=== PATIENT | male | born 1940 | race Caucasian/White ===

== ENCOUNTER 2021-05-26 06:25 | Observation (INO) ==
--- NOTE | 2021-04-28 12:53 | PAT Medication Instructions ---
Medication Instructions Date of Service April 28, 2021 Home Medications Medication Instructions Recorded ondansetron HCl 4 mg tablet 4 mg PO Q6H PRN #30 tab 04/14/21 oxycodone 5 mg tablet 5 mg PO Q4H PRN #18 tab 04/21/21 ondansetron HCl 4 mg tablet 4 mg PO Q6H PRN oxycodone 5 mg tablet 5 mg PO Q4H PRN cholecalciferol (vitamin D3) 25 mcg (1,000 unit) tablet (Vitamin D3) 25 mcg PO QAM cyanocobalamin (vitamin B-12) 1,000 mcg tablet (Vitamin B-12) 1,000 mcg PO QAM finasteride 5 mg tablet 5 mg PO QAM furosemide 20 mg tablet (Lasix) 20 mg PO QAM glucosamine-chondroitin 250 mg-200 mg tablet (Osteo Bi-Flex) 1 tab PO QAM levothyroxine 75 mcg capsule 75 mcg PO QAM omeprazole 20 mg capsule,delayed release 20 mg PO QAM pravastatin 40 mg tablet 40 mg PO HS tamsulosin 0.4 mg capsule 0.4 mg PO HS zinc sulfate 220 mg capsule 220 mg PO QAM STOP taking 2 weeks before surgery glucosamine-chondroitin 250 mg-200 mg tablet (Osteo Bi-Flex) 1 tab PO QAM DO NOT take the morning of surgery cholecalciferol (vitamin D3) 25 mcg (1,000 unit) tablet (Vitamin D3) 25 mcg PO QAM cyanocobalamin (vitamin B-12) 1,000 mcg tablet (Vitamin B-12) 1,000 mcg PO QAM furosemide 20 mg tablet (Lasix) 20 mg PO QAM zinc sulfate 220 mg capsule 220 mg PO QAM Take morning of surgery With a small sip of water, OTHERWISE NOTHING TO EAT OR DRINK AFTER MIDNIGHT: ondansetron HCl 4 mg tablet 4 mg PO Q6H PRN (if needed) oxycodone 5 mg tablet 5 mg PO Q4H PRN (okay to take up to 4 hours prior to surgery if needed) finasteride 5 mg tablet 5 mg PO QAM levothyroxine 75 mcg capsule 75 mcg PO QAM omeprazole 20 mg capsule,delayed release 20 mg PO QAM Take evening before surgery ondansetron HCl 4 mg tablet 4 mg PO Q6H PRN (if needed) oxycodone 5 mg tablet 5 mg PO Q4H PRN (if needed) pravastatin 40 mg tablet 40 mg PO HS tamsulosin 0.4 mg capsule 0.4 mg PO HS Other Notes If you have any questions please call us at [phone] or [phone] or [phone] or [phone]
--- NOTE | 2021-05-01 10:42 | Anesthesiology Consultation ---
Date of Service May 01, 2021 Assessment & Plan (1) Encounter for pre-operative examination: Chart Review Chart Review: Acceptable Risk for Surgery (pending pulmonary response and preop Covid testing results ) and Patient seen in Pre Admission Testing -Will send note to pulmonology re: abnormal CXR - will await response Per [facility] appt on 05/01/21, patient denies any recent travel or large group activities. No known Covid positive contacts or Covid related symptoms. No known Covid infection in the past 90 days. Pt is vaccinated for Covid. Preop Covid testing scheduled 05/22/21 = will await results. Educated on importance of self quarantining, social distancing and wearing mask in public for the patient one week prior to surgery and after Covid testing done Teaching & Discussion Pre-Anesthesia Teaching/Discussion Notes: Instructed NPO after midnight before surgery,except medications with 15 cc of water. Medication instructions provid ed according to the PAT guidelines. History Surgery Operation Date: 05/26/21 07:00 Proposed Procedures p Right Total Knee Arthroplasty - Aric Parish DO Height/Weight Height: 6 ft 1 in Weight: 86.4 kg Allergies Allergy/AdvReac Type Severity Reaction Status Date / Time No Known Allergies Allergy Verified 04/09/21 13:16 Medications Home Medications Medication Instructions Recorded Confirmed Last Taken ondansetron HCl 4 mg tablet 4 mg PO Q6H PRN #30 tab 04/14/21 04/28/21 Unknown oxycodone 5 mg tablet 5 mg PO Q4H PRN #18 tab 04/21/21 04/28/21 Unknown cholecalciferol (vitamin D3) 25 25 mcg PO QAM 04/28/21 04/28/21 Unknown mcg (1,000 unit) tablet (Vitamin D3) cyanocobalamin (vitamin B-12) 1,000 mcg PO QAM 04/28/21 04/28/21 Unknown 1,000 mcg tablet (Vitamin B-12) finasteride 5 mg tablet 5 mg PO QAM 04/28/21 04/28/21 Unknown furosemide 20 mg tablet (Lasix) 20 mg PO QAM 04/28/21 04/28/21 Unknown glucosamine-chondroitin 250 mg-200 1 tab PO QAM 04/28/21 04/28/21 Unknown mg tablet (Osteo Bi-Flex) levothyroxine 75 mcg capsule 75 mcg PO QAM 04/28/21 04/28/21 Unknown omeprazole 20 mg capsule,delayed 20 mg PO QAM 04/28/21 04/28/21 Unknown release pravastatin 40 mg tablet 40 mg PO HS 04/28/21 04/28/21 Unknown tamsulosin 0.4 mg capsule 0.4 mg PO HS 04/28/21 04/28/21 Unknown zinc sulfate 220 mg capsule 220 mg PO QAM 04/28/21 04/28/21 Unknown Past Medical History Medical History (Updated 05/01/21 @ 11:43 by Jany Macedo PA-C) BPH (benign prostatic hyperplasia) CKD (chronic kidney disease) stage 3, GFR 30-59 ml/min Per record GERD (gastroesophageal reflux disease) Well controlled and stable History of COVID-19 07/2020 was hospitalized at [facility] for 9 days. Required oxygen- no longer requires. Has been seeing [facility] due to Covid infection and residual dyspnea- currently pt states Covid symptoms have resolved Last seen by pulm 11/13/20- pt stable at that time Hyperlipidemia Hypothyroidism Osteoarthritis Prediabetes Per record Sleep apnea cpap Exercise / Class Metabolic Activity III < 4 Walking/Shop/Light housework (one flight of stairs - no chest pain, but has mild SOB ) Past Surgical History Surgical History (Updated 05/01/21 @ 11:49 by Jany Macedo PA-C) History of bronchoscopy History of carpal tunnel surgery of right wrist Hx of appendectomy Hx of cardiac cath 03/2020- no significant CAD Hx of tonsillectomy Past Anesthesia History No Hx of Anesthesia Complications and No Family Hx of Anesthesia Complications History of PONV No Hx of PONV and No Hx of Motion Sickness Social History Smoking Status: Never smoker Do You Dip or Chew Tobacco: No Hx Alcohol Use: No Hx Substance Use: No substance use type: does not use Review of Systems Patient denies chest pain, shortness of breath, dyspnea on exertion, cough, wheezing, palpitations. No hx of seizures, stroke, [place]. No hx of blood clots or blood transfusions Physical Exam Vital Signs VITALS BP 122/72 P 60 TEMP 97.9 SP02 96% RESP 16 Constitutional no acute distress ENMT Mouth: no TMJ clicking Thyromental Distance: > or= 3.5 Finger Breadths (3.5) Mallampati Class: II Mouth / Teeth: 1. Capped Neck + limited neck extension (mild ) Missing molars Respiratory normal respiratory effort; no respiratory distress Auscultation: lungs clear to auscultation bilaterally; no wheezes Cardiovascular Rate/Rhythm: regular rate and regular rhythm Heart Sounds: no murmur Vessels: no carotid bruit Musculoskeletal Spine: no pain with cervical ROM Extremities: extremities normal to inspection Psychiatric Orientation: alert Lab Results Anesthesia Preop Results Results Anesthesia Widget: WBC 6.08 K/uL (4.8-10.8) 05/01/21 Hgb 14.7 g/dL (14.0-18.0) 05/01/21 Hct 44.6 % (42-52) 05/01/21 Plt 169 K/uL (130-400) 05/01/21 Na 141 mmol/L (136-145) 05/01/21 K 3.7 mmol/L (3.5-5.1) 05/01/21 Cl 108 mmol/L (98-107) H 05/01/21 CO2 26 mmol/L (21-32) 05/01/21 BUN 20 mg/dl (7-18) H 05/01/21 Creat 1.07 mg/dl (0.6-1.4) 05/01/21 Glucose Level 105 mg/dl (70-99) H 05/01/21 PT 10.2 Seconds (9.0-12.0) 05/01/21 PTT 28.2 Seconds (21.0-31.0) 05/01/21 INR 1.0 (0.9-1.1) 05/01/21 Blood Type O Positive 05/01/21 Antibody Screen NEGATIVE 05/01/21 Testing Electrocardiogram Date: 07/17/20 Findings: + SB @ (51bpm) Otherwise normal EKG per cardio. Chest X-Ray Date: 05/01/21 FINDINGS: Cardiac silhouette is normal in size. Moderate right hemidiaphragmatic elevation. Gaseous distended loops of bowel are noted beneath the right he midiaphragm. Bilateral reticular nodular opacities. No pneumothorax, pleural effusion, lobar airspace consolidation or overt pulmonary edema. Degenerative changes of the shoulders and spine. IMPRESSION: 1. Bilateral reticular nodular opacities are suggestive of a nonspecific infectious or inflammatory pneumonitis, possibly chronic. Correlate with prior imaging. 2. Moderate right hemidiaphragmatic elevation. Stress Test Date: 10/13/19 Type: exercise (Echo) Resting EF: 50-54% Resting LV Function: normal Resting RWMA: + none Valvular Disease: no significant valvular disease Probable negative exercise stress echo for ischemia at MPHR 97%. Borderline positive exercise stress EKG for ischemia at MPHR 97%. 1.[address] depression in the inferior leads at peak stress. EKG normalizes 1 minute into recovery. Poor functional status achieving 3 minutes on standard Velasquez protocol. Left atrium mildly enlarged. Right atrium moderately enlarged. Grade 1 diastolic dysfunction. Cardiac Catheterization Date: 04/02/20 LM = no evidence of disease LAD = 30% lesion in mid LAD Circumflex = no evidence of disease. RCA = minimal luminal irregularities. Conclusions: Coronary angiography with mild nonobstructive CAD. Essentially normal left-sided and right-sided pressures.Patient's dyspnea is likely noncardiac in nature. Recommendations: Recommend medical management. Other Testing Holter monitor 07/10/2020 = good quality. Dominant rhythm NSR with average heart rate 70 bpm. Rare PACs. Occasional PVCs. No symptoms reported.
[~2021-05-26 06:25] MED LIST: ACETAMINOPHEN 500 MG TAB PO SCH; FAMOTIDINE 20 MG TAB PO SCH; GABAPENTIN 300 MG CAP PO SCH; LR 500ML BOLUS, THEN 15ML/HR IV SCH; LR 60ML/HR IV SCH; ROPIVACAINE 0.5% HCL/PF 150 MG, BUPIVACAINE 0.75% MPF 20 ML, EPINEPHrine 30MG/30ML (OR ... INSTIL SCH; TRANEXAMIC ACID 1,000 MG **IV Intra-op IV SCH; TRANEXAMIC ACID 1,000 MG **IV Pre-op IV SCH; ceFAZolin 2000MG 2,000 MG/15 ML SYR IV SCH; dexAMETHasone 4 MG TAB PO SCH
--- NOTE | 2021-05-26 06:28 | History & Physical Report ---
Date of Service May 26, 2021 Assessment & Plan (1) Osteoarthritis of right knee: We will proceed with a right total knee arthroplasty. Postoperatively he will be started on aspirin for DVT prophylaxis and kept overnight in the hospital for postoperative medical management. He is currently wheelchair-bound and proceeding with a knee replacement will significantly improve his overall morbidity and functional status. He plans to have the hospital set up home health upon discharge. History of Present Illness Chief Complaint: Osteoarthritis of the right knee. Primary Care Provider: NO PCP Gualberto is a pleasant 80-year-old male who is been doing with chronic worsening right knee pain. Is been going on for years but it has been much worse over the past few months. He is downgraded to crutches and mostly a wheelchair because of his right knee pain. He has an MRI of his knee which shows significant distal femoral edema and insufficiency fractures of the femur. After failing extensive conservative treatment, he elected proceed with a right total knee arthroplasty.. Allergies Allergy/AdvReac Type Severity Reaction Status Date / Time No Known Allergies Allergy Verified 04/09/21 13:16 Home Medications Medication Instructions Recorded Confirmed Type ondansetron HCl 4 mg tablet 4 mg PO Q6H PRN #30 tab 04/14/21 04/28/21 Rx oxycodone 5 mg tablet 5 mg PO Q4H PRN #18 tab 04/21/21 04/28/21 Rx cholecalciferol (vitamin D3) 25 25 mcg PO QAM 04/28/21 04/28/21 History mcg (1,000 unit) tablet (Vitamin D3) cyanocobalamin (vitamin B-12) 1,000 mcg PO QAM 04/28/21 04/28/21 History 1,000 mcg tablet (Vitamin B-12) finasteride 5 mg tablet 5 mg PO QAM 04/28/21 04/28/21 History furosemide 20 mg tablet (Lasix) 20 mg PO QAM 04/28/21 04/28/21 History glucosamine-chondroitin 250 mg-200 1 tab PO QAM 04/28/21 04/28/21 History mg tablet (Osteo Bi-Flex) levothyroxine 75 mcg capsule 75 mcg PO QAM 04/28/21 04/28/21 History omeprazole 20 mg capsule,delayed 20 mg PO QAM 04/28/21 04/28/21 History release pravastatin 40 mg tablet 40 mg PO HS 04/28/21 04/28/21 History tamsulosin 0.4 mg capsule 0.4 mg PO HS 04/28/21 04/28/21 History zinc sulfate 220 mg capsule 220 mg PO QAM 04/28/21 04/28/21 History Past Med/Surg History Medical History BPH (benign prostatic hyperplasia) CKD (chronic kidney disease) stage 3, GFR 30-59 ml/min Per record GERD (gastroesophageal reflux disease) Well controlled and stable History of COVID-19 07/2020 was hospitalized at [facility] for 9 days. Required oxygen- no longer requires. Has been seeing [facility] due to Covid infection and residual dyspnea- currently pt states Covid symptoms have resolved Last seen by pulm 11/13/20- pt stable at that time Hyperlipidemia Hypothyroidism Osteoarthritis Prediabetes Per record Pulmonary hypertension Following with pulm- on diuretic and low Na diet Sleep apnea cpap Surgical History History of bronchoscopy History of carpal tunnel surgery of right wrist Hx of appendectomy Hx of cardiac cath 03/2020- no significant CAD Hx of tonsillectomy Social History Smoking Status: Never smoker Second Hand Exposure: No; Do You Dip or Chew Tobacco: No; Tobacco Cessation Education Requested by Patient: No Hx Alcohol Use: No Hx Substance Use: No Preferred Language: Botswanan Communication Ability: Effective Manager Work Required: No Beliefs That Will Affect Care: None Current Living Situation: Spouse Other Information That Helps Us Care for You: No Feels Safe at Home: Yes Safety Concerns: Feels Safe At This Time Assistive Devices: Crutches Review of Systems All systems reviewed & are unremarkable except as noted in HPI & below. Physical Exam On physical examination of his right knee, he only has range of motion from 30 to 90 degrees. He is a large effusion. He has significant pain over the distal femoral condyles. He presents to my office in a wheelchair because of the pain.. Constitutional WD/WN, vitals as above Eyes PERRL, conjunctivae normal, anicteric sclerae ENMT external ear and nose normal, oropharynx normal Neck trachea midline, no thyromegaly Respiratory normal respiratory effort Cardiovascular RRR, no murmur, no edema Gastrointestinal (Abdomen) normal bowel sounds, soft, nontender, no hepatosplenomegaly Psychiatric A+Ox3, euthymic affect Results & Data Results & Data Laboratory Results . Diagnostic Findings X-rays of the right leg do show advanced osteoarthritis with joint space narrowing, osteophyte formation, and [id number] articulation MRI the right knee shows a large areas of edema in the distal femoral condyle. There insufficiency fractures of the femur.. PG Care Time/CCT Total # of Minutes Spent Total Time Spent with Patient: Total time spent is greater than 50% in coordination of care (as documented) at patient's floor/unit and/or counseling patient: Coding Level of Care Code None Diagnoses Osteoarthritis of right knee M17.11
[2021-05-26] MEDS ORDERED: BUPIVACAINE 0.5 % 5 MG/1 ML PF 10ML VIAL ONE (06:32)
[2021-05-26] MEDS ORDERED: ROPIVACAINE 0.5% 5 MG/ML 30 ML VIAL ONE (06:32)
[2021-05-26] MEDS ORDERED: MIDAZOLAM HCL 1 MG/ML 2ML VIAL ONE (07:34)
[2021-05-26] MEDS ORDERED: PROPOFOL IV EMULSION 10 MG/ML 20 ML VIAL IV ONE ×3 (07:35→10:22)
[2021-05-26] MEDS ORDERED: ePHEDrine sulfate 50 MG/ML AMP IV PRN (08:31)
[2021-05-26] MEDS ORDERED: ATROPINE SULFATE 0.1 MG/ML 10ML SYR IV PRN (08:31)
[2021-05-26] MEDS ORDERED: fentaNYL citrate 100 MCG/2 ML VIAL IV PRN (08:31)
[2021-05-26] MEDS ORDERED: ONDANSETRON INJ 2 MG/ML 2 ML VIAL IV PRN ×2 (08:31→13:40)
--- NOTE | 2021-05-26 11:35 | Operative Report ---
PG Post Operative Report Pre & Post Diagnosis Operation Date: 05/26/21 08:45 Pre-Op Diagnosis: Right Knee Degenerative Joint Disease Post-Op Diagnosis: Right Knee Degenerative Joint Disease I identified the patient and participated in the time-out.: Yes Procedure Operation Date: 05/26/21 08:45 Actual Procedures p Right Total Knee Arthroplasty(Right) - Aric Parish DO Surgeon Aric Parish DO Propeller Tester Aric Núñez PAC Estimated Blood Loss 50 Findings Consistent with Post-Op Diagnosis Specimens Right femoral and tibial bone Complications none Disposition Disposition: Recovery Room Indications Weston is a pleasant 80-year-old male who is been dealing with chronic worsening right knee pain. Is been much worse over the past 2 months. Is been downgraded to a wheelchair. MRI showed insufficiency fractures of his right knee. After failing conservative treatment, he elected proceed with a right total knee arthroplasty. Description of Procedure Implants used: I used a Angela Persona total knee arthroplasty system with a size 10 femur, G tibia with a 30 mm stem, 32 patella, and a size 12 medial congruent polyethylene bearing. All components were cemented in place with Biomet cement. Weston arrived [facility] for the above procedure. He was seen in the preoperative holding area and the operative extremity was identified and signed. He was given a preoperative antibiotic, TXA, a spinal anesthetic and an adductor nerve block. He was taken back to the operating room and laid on the table in supine position. He was given basic sedation. The operative knee was then prepped and draped in sterile fashion. A timeout was done, and the patient and the operative extremity was properly identified. A midline incision was made directly over the patella. Dissection was taken down to the extensor mechanism. A subvastus arthrotomy was used. The medial retinaculum was released and the fat pad was mostly excised. The knee was flexed and the ACL, PCL, and meniscus were removed. A drill was sent down the center of the femoral canal followed by an intramedullary eric. Off that eric a distal femoral cutting block was placed. 9 mm was resected off the distal femur at 5 of valgus. A posterior referencing AP sizing guide was then placed on the distal femur. The femur measured to be a size 10. 2 drill holes were placed in 3 of external rotation. A 4-in-1 cutting block was then impacted into place. Anterior, posterior, and chamfer cuts were then made. The proximal tibia was then exposed. An external tibial alignment guide was placed. A tibial cut guide was then anchored in place and the proximal tibia was then resected. The posterior aspect of the knee was then opened up and any additional meniscus fragments and osteophytes were removed. The tibia measured to be a size G. The tibial plate was then placed in the appropriate rotation and the tibia was drilled and punched. Trial components were then placed. I used a size 12 medial congruent polyethylene insert. The knee was brought through a full range of motion and felt to be stable. The peg holes for the femoral component were then drilled. The patella was then everted and 9 mm was resected off the posterior aspect of the patella. The patella measured to be a size 30 total. 3 peg holes were then drilled. A trial patella was placed. The knee was once again brought through a full range of motion and felt to be stable. Trial components were then removed. The surrounding soft tissues were injected with 100 cc of an orthopedic pain control cocktail. All components were then cemented into place with Biomet cement. The final polyethylene insert was then snapped into place. Once cement was dry the tourniquet was deflated. Hemostasis was obtained. A dilute betadyne lavage was then done for 3 minutes. The joint was then irrigated with normal saline solution. The subvastus arthrotomy was then closed with #1 Vicryl suture. The skin was closed with 2-0 Vicryl, 3-0V lock suture, and amish. A soft compressive dressing was placed. He was then transferred to a hospital bed and taken to the postanesthesia care unit in stable condition. He tolerated the procedure well. Aric Núñez PA-C, was present for the entire procedure. He was critical for patient positioning, prepping, draping, retraction exposure, wound closure and application of sterile dressing. I attest to the content of the Intraoperative Record and any orders documented therein. Any exceptions are noted below.
--- NOTE | 2021-05-26 12:42 | XRay Report ---
XR knee RT 1 or 2V routine INDICATION: Status post total knee arthroplasty.. TECHNIQUE: 2 views of the right knee were obtained. Comparison: None available at the time of this dictation. FINDINGS: Patient is status post total knee arthroplasty. No evidence of hardware fracture or perihardware luce ncy. There is soft tissue swelling, effusion, and subcutaneous emphysema which is expected postproced urally. IMPRESSION: Expected postsurgical appearance in this patient status post right total knee arthroplasty. ACT 112: Negative or not required by law. Electronically signed by: Demond Gonzalez M.D. 05/26/2021 12:41 PM
--- NOTE | 2021-05-26 12:47 | Anesthesiology Progress Note ---
Date of Service May 26, 2021 Anesthesia Post Procedure Vital Signs Vital Signs: Temp Pulse Pulse Resp BP Pulse Ox 05/26/21 12:40 82 20 112/73 94 05/26/21 12:30 63 12 125/78 94 05/26/21 12:20 78 13 117/77 95 05/26/21 12:10 79 20 120/73 95 05/26/21 12:00 97.0 F L 82 15 138/79 95 05/26/21 06:58 98.4 F 68 18 122/78 96 Transfer of Care Handoff Completed per policy Notes Mental Status: alert / awake / arousable and participated in evaluation Patient Amnestic to Procedure: Yes Nausea / Vomiting: adequately controlled Pain: adequately controlled Airway Patency, RR, SpO2: stable & adequate BP & HR: stable & adequate Hydration State: stable & adequate Neuraxial Anesthesia: was administered and sensory block is resolving Anesthetic Complications: no major complications apparent and Pt Satisfied with anesthetic care
[2021-05-26] MEDS ORDERED: oxyCODONE HCL IR 5 MG TAB (IMMEDIATE RELEASE) PO PRN (13:40)
[2021-05-26] MEDS ORDERED: HYDROmorphone INJ 0.5 MG/0.5 ML SYR IV PRN (13:40)
[2021-05-26] MEDS ORDERED: METOCLOPRAMIDE HCL INJ 5 MG/ML 2 ML VIAL IV PRN (13:40)
[2021-05-26] MEDS ORDERED: MAGNESIUM HYDROXIDE SUSP 30 ML UDC PO PRN (13:40)
[2021-05-26] MEDS ORDERED: bisacodyL 10 MG SUPP PR PRN (13:40)
[2021-05-26] MEDS ORDERED: NALOXONE HCL 0.4 MG/1 ML VIAL/CARP IV PRN (13:40)
[2021-05-26] MEDS: ACETAMINOPHEN 500 MG TAB PO SCH ×2 (15:01→21:31)
[2021-05-26] MEDS: KETOROLAC TROMETHAMINE 15 MG/ML VIAL IV SCH ×2 (15:46→21:31)
[2021-05-26] MEDS: ceFAZolin 2000MG 2,000 MG/15 ML SYR IV SCH (17:30)
[2021-05-26] MEDS: SODIUM CHLORIDE 0.9% 1000ML 1,000 ML IV SCH ×2 (19:26→21:47)
[2021-05-26] MEDS ORDERED: SENNA 8.6 MG TAB PO SCH (21:00)
[2021-05-26] MEDS ORDERED: TAMSULOSIN HCL 0.4 MG CAP PO SCH (21:00)
[2021-05-26] MEDS ORDERED: PRAVASTATIN SOD 40 MG TAB PO SCH (21:00)
[2021-05-26] MEDS: ASPIRIN 81 MG ECTAB PO SCH (21:30)
[2021-05-26] MEDS: DOCUSATE SODIUM 100 MG CAP PO SCH (21:30)
[2021-05-27] MEDS: ceFAZolin 2000MG 2,000 MG/15 ML SYR IV SCH (01:49)
[2021-05-27] MEDS: KETOROLAC TROMETHAMINE 15 MG/ML VIAL IV SCH ×2 (05:10→11:52)
[2021-05-27] MEDS: ACETAMINOPHEN 500 MG TAB PO SCH ×2 (05:10→13:25)
--- NOTE | 2021-05-27 06:20 | Orthopedic Progress Note ---
Date of Service May 27, 2021 Assessment & Plan (1) Status post right knee replacement: Overall is doing fairly well. Is not having much pain in the right knee. He is on aspirin for DVT prophylaxis. We will get an ultrasound of his right calf this morning. He can be seen by physical therapy for ambulation and range of motion exercises. As long as he does well with therapy and the ultrasound of his right leg is negative, he can be discharged home. He will follow-up with orthopedics in 2 weeks. Bacilio Ontiveros was seen and examined at bedside this morning. Overall he is doing very well. Is not having much pain in his right knee. He is having some pain in his right calf. He has been up and ambulating to the bathroom. He has no complaints.. Review of Systems All systems reviewed & are unremarkable except as noted in HPI & below. Physical Exam On physical examination of the right knee, the dressing is clean and dry. There is ice on his right knee. He does have some pain in the central portion of his right calf. He has active dorsiflexion plantarflexion of his right ankle.. Results & Data Results & Data Laboratory Results . Diagnostic Findings X-rays of the right knee show the prosthesis to be in anatomic alignment without any evidence of fracture, dislocation, or loosening. PG Care Time/CCT Total # of Minutes Spent Total Time Spent with Patient: Total time spent is greater than 50% in coordination of care (as documented) at patient's floor/unit and/or counseling patient: Coding Level of Care Code 46498 Post Operative Follow-Up Diagnoses Status post right knee replacement Z96.651
[2021-05-27] MEDS ORDERED: LEVOTHYROXINE SODIUM 75 MCG TABLET PO SCH (06:30)
[2021-05-27 07:41] VITALS: TEMP 97.9; O2SAT 96
[2021-05-27] MEDS ORDERED: dexAMETHasone 4 MG TAB PO SCH (08:00)
[2021-05-27] MEDS: DOCUSATE SODIUM 100 MG CAP PO SCH (08:51)
[2021-05-27] MEDS: ASPIRIN 81 MG ECTAB PO SCH (08:52)
[2021-05-27] MEDS ORDERED: FINASTERIDE 5 MG TAB PO SCH (09:00)
[2021-05-27] MEDS ORDERED: MULTIVITAMIN TAB PO SCH (09:00)
[2021-05-27] MEDS ORDERED: FUROSEMIDE 20 MG TAB PO SCH (09:00)
--- NOTE | 2021-05-27 10:19 | Ultrasound Report ---
ULTRASOUND RIGHT LOWER EXTREMITY VENOUS CLINICAL HISTORY: Right calf tenderness. COMPARISON STUDY: No priors. TECHNIQUE: Real-time, grayscale, and color Doppler sonography of the deep veins of the right lower ex tremity was performed from the inguinal crease to the calf. Compression and augmentation were utilize d. FINDINGS: There is no sonographic evidence of deep venous thrombosis identified in the right lower ex tremity. The common femoral, superficial femoral, and popliteal veins are patent and normally bhavesh sible. The greater saphenous vein and the profunda femoris vein at the junction with the common femor al vein are clear. The visualized calf veins are patent. At the site of interest within the medial ca lf there is a complex nonvascular fluid collection which measures approximately 15 x 1 x 6 cm. IMPRESSION: 1. There is no sonographic evidence of deep venous thrombosis identified in the right lower extremity . 2. There is a thin nonvascular complex fluid collection at the site of interest in the medial calf wh ich measures approximately 15 x 1 x 6 cm. This could represent a small hematoma, or possibly the sequ elae of a ruptured popliteal cyst. Clinical correlation will be required, and clinical follow-up to [facility] is recommended. ACT 112: Negative or not required by law. Electronically signed by: Tanner Goodman M.D. 05/27/2021 10:18 AM
[2021-05-27 13:04] VITALS: BP 141/73; PULSE 64
--- NOTE | 2021-05-28 12:41 | Discharge Summary ---
Date of Service May 28, 2021 Admission HPI (Per Admitting) Gualberto is a pleasant 80-year-old male who is been doing with chronic worsening right knee pain. Is been going on for years but it has been much worse over the past few months. He is downgraded to crutches and mostly a wheelchair because of his right knee pain. He has an MRI of his knee which shows significant distal femoral edema and insufficiency fractures of the femur. After failing extensive conservative treatment, he elected proceed with a right total knee arthroplasty.. Admission Exam (Per Admitting) On physical examination of his right knee, he only has range of motion from 30 to 90 degrees. He is a large effusion. He has significant pain over the distal femoral condyles. He presents to my office in a wheelchair because of the pain.. Principal Diagnosis Same as "Discharge Diagnosis" noted below under Discharge Instructions. Discharge Exam On physical examination of the right knee, the dressing is clean and dry. There is ice on his right knee. He does have some pain in the central portion of his right calf. He has active dorsiflexion plantarflexion of his right ankle.. Discharge Data Procedures Performed Operation Date: 05/26/21 08:45 Actual Procedures p Right Total Knee Arthroplasty(Right) - Aric Parish DO Ordered Studies 05/26/21 05:00 US - OR guided needle placemen Routine 05/27/21 09:30 US venous doppler LE RT Routine Hospital Course (1) Status post right knee replacement: On May 26, 2021 Weston arrived at [facility] and underwent a right knee replacement without complication. He had a spinal anesthetic. Postoperatively he was started on aspirin for DVT prophylaxis and transferred to the general orthopedic floors. His hospital course was uneventful. On postop day #1 his vital signs were stable and his pain was well controlled. He was able to participate well with physical therapy doing ambulation and range of motion exercises. He did have an ultrasound of his right leg which was negative for DVT. He was having some calf pain. He was then discharged home. He will follow-up with orthopedics in 2 weeks. PG Care Time/CCT Total # of Minutes Spent Total Time Spent with Patient: Total time spent is greater than 50% in coordination of care (as documented) at patient's floor/unit and/or counseling patient: Discharge Plan Discharge Items Patient Disposition: Home - Home Health Services Reason For Visit: Right Knee Degenerative Joint Disease Discharge Diagnosis: Right knee replacement Activity: As commented below Non-emergency contact: Surgeon Call non-emergency contact if: your wound has increased redness and your wound has increased drainage Follow-up/Referrals: Vito Jean [Primary Care Provider] - Diet: Regular Addtl Attending Provider Instructions: Activity and Therapy Recommendations: * If you are using [facility] then therapy will be provided at your home until they feel you have accomplished all of your goals. * If you are using [facility] then Physical Therapy will be provided until they feel you are ready to start Outpatient Physical Therapy. * If you are not using home therapy then Outpatient Physical Therapy should start about 3-5 days from your day of surgery. Therapy will last about 6-10 weeks * It is important not to put a pillow under your knee when you are relaxing or sleeping. It is just as important to make sure you are getting your knee perfectly straight as it is to regain your knee bend. * You were shown a series of exercises in the hospital. Do these exercises three times each day including the exercises you were shown in physical therapy. * Get up and walk several times each day. For the first four weeks, try not to stand or walk for more than one hour at a time. If you do stand or walk for more than one hour, you will not hurt anything, but your leg will likely swell. * As you feel comfortable, you may change from the walker or crutches to a cane and then to independent walking. Medications: * Narcotic You will likely be sent home from the hospital with a prescription for the narcotic pain medication that worked best throughout your stay. * Aspirin Most patients will be required to take Aspirin 81mg twice a day for 6 weeks after surgery. This is obtained [id number] and a prescription is not necessary. * Other medications may be prescribed for specific circumstances. If you have any questions, please call the office at . * Resume previous home medications unless otherwise instructed TEDs/Elastic Stockings: The white elastic stockings help limit swelling and prevent blood clots from forming in your legs.~ The more you wear them, the more they work. Wear them for six weeks. Dressing Care: The dressing can be changed after physical therapy on postop day #1. Daily dry dressing changes for a few days, especially if the incision is still draining some. If the incision is not draining then you may leave the amish open to air. If there is a little bit of drainage or if the amish are getting stuck on your clothing then cover the incision with a dry dressing. The amish will be removed at your 2 week follow-up appointment. Showering: You may shower 5 days from the day of surgery as long as the incision is no longer draining. You may shower with the amish exposed. Let soapy water run over the amish and pat them dry. Do not scrub or soak the incision. Things To Watch For: * Drainage from the incision site that occurs more than one week after your surgery. * Increased redness at the incision site. * Fever above 102 degrees Fahrenheit. * Unusual chest pain or shortness of breath. * Call [facility] at with any of the above problems Follow-Up Visit: Follow-up with Dr. Parish's PA (Aric Núñez) 2-3 weeks after your day of surgery. He will remove your amish and answer any questions. If you have any additional questions or concerns, Dr Parish is usually in the office at the same time and will be available An appointment was probably scheduled when you signed-up for surgery in the office. If you have any questions call Office Instructions: More detailed instructions as well as Frequently Asked Questions were provided in a folder by our office when you signed-up for surgery. Please review these instructions when you get home. If you have any further questions or concerns, please feel free to call the office at [phone] Pending Studies at Discharge: No Stand-Alone Forms: My [facility], Opioid Pain Management Medications and DC Order Prescriptions: New aspirin 81 mg Tablet,Delayed Release (Dr/Ec) 81 mg PO BID Qty: 0 RF: 0 Continued ondansetron HCl 4 mg tablet 4 mg PO Q6H PRN (Reason: nausea and vomiting) Qty: 30 RF: 0 pravastatin 40 mg Tablet 40 mg PO HS RF: 0 cyanocobalamin (vitamin B-12) [Vitamin B-12] 1,000 mcg Tablet 1,000 mcg PO QAM RF: 0 tamsulosin 0.4 mg Capsule 0.4 mg PO HS RF: 0 omeprazole 20 mg Capsule,Delayed Release(Dr/Ec) 20 mg PO QAM RF: 0 furosemide [Lasix] 20 mg Tablet 20 mg PO QAM RF: 0 zinc sulfate 220 mg Capsule 220 mg PO QAM RF: 0 finasteride 5 mg Tablet 5 mg PO QAM RF: 0 glucosamine-chondroitin [Osteo Bi-Flex] 250-200 mg Tablet 1 tab PO QAM RF: 0 cholecalciferol (vitamin D3) [Vitamin D3] 25 mcg (1,000 unit) Tablet 25 mcg PO QAM RF: 0 levothyroxine 75 mcg Capsule 75 mcg PO QAM RF: 0 oxycodone 5 mg tablet 5 mg PO Q4H PRN (Reason: pain) Qty: 30 RF: 0 No Action (DME) Wheeled Walker Misc See Rx Instructions .MEDSUPPLY Qty: 1 RF: 0 (DME) Wheeled Walker Misc See Rx Instructions .MEDSUPPLY Qty: 1 RF: 0 Discharge Orders: Discharge Order (Routine); Ordered 05/27/21 Ordered By: Aric Parish Admission Data Admit Date/Time: 05/26/21 12:07 Attending Provider: Aric Parish Admit Provider: Aric Parish Primary Care Provider: Vito Jean Other Interventions: Discharge Summary Assessment (RN) Last Done: 05/27/21 11:27
== END 2021-05-27 14:20 | disposition home health service (06) ==
LOC: ASU 06:25 → 3E 06:25

== ENCOUNTER 2021-12-19 10:24 | Observation (INO) ==
--- NOTE | 2021-12-17 09:35 | Anesthesiology Consultation ---
Date of Service December 17, 2021 Assessment & Plan (1) Encounter for pre-operative examination: - check CBC with diff, BMP and coags am DOS. Pt seen by pulm 09/26/21=seen for preoperative respiratory evaluation for upcoming left TKA. Had right TKA done in May 2021 and tolerated well. Remains functional and still tries to go about usual activities at own pace. Has baseline interstitial lung. Baseline history of GUY and compliant with CPAP. CXR results reviewed. Interstitial lung disease does not require oxygen supplementation and maintains decent saturations. "Pt is stable from pulmonary point of view to undergo the stated procedure but remains at moderate risk for anesthetic complications in view of his baseline comorbidities and age. " GUY- while sleeping should be on PAP therapy.Standard DVT precautions. Early ambulation. Incentive spirometer use. Feel free to ask for pulmonary evaluation frequent postop. Patient will be scheduled for PFTs and CT scan of chest prior to next visit. Chronic elevation of right hemidiaphragmhas remained stable. Pt acceptable risk for surgery pending preop Covid testing results. - COVID screening: Per sound engineering technician on 12/16/2021: Travel screen negative, no known COVID-19 positive contacts or current COVID-19 related symptoms in past 2 weeks. Patient vaccinated. Surgeon arranging preop COVID testing, scheduled 12/17/2021. Awaiting results. Chart Review Chart Review: Acceptable Risk for Surgery and Patient NOT seen in Pre Admission Testing History Surgery Operation Date: 12/19/21 11:10 Proposed Procedures p Left Total Knee Arthroplasty - Aric Parish DO Surgery re-scheduled since 09/2021 anesthesia review due to OR limitations in setting of COVID pandemic. Height/Weight Height: 6 ft 1 in Weight: 88.451 kg Allergies Allergy/AdvReac Type Severity Reaction Status Date / Time No Known Allergies Allergy Verified 12/16/21 14:04 Medications Home Medications Medication Instructions Recorded Confirmed Last Taken ondansetron HCl 4 mg tablet 4 mg PO Q6H PRN #30 tab 04/14/21 12/16/21 Unknown cholecalciferol (vitamin D3) 25 25 mcg PO QAM 04/28/21 12/16/21 05/25/21 09:30 mcg (1,000 unit) tablet (Vitamin D3) cyanocobalamin (vitamin B-12) 1,000 mcg PO QAM 04/28/21 12/16/21 05/25/21 09:30 1,000 mcg tablet (Vitamin B-12) finasteride 5 mg tablet 5 mg PO QAM 04/28/21 12/16/21 05/25/21 09:30 furosemide 20 mg tablet (Lasix) 20 mg PO QAM 04/28/21 12/16/21 05/25/21 09:30 glucosamine-chondroitin 250 mg-200 1 tab PO QAM 04/28/21 12/16/21 05/12/21 08:00 mg tablet (Osteo Bi-Flex) levothyroxine 75 mcg capsule 75 mcg PO QAM 04/28/21 12/16/21 05/26/21 05:00 omeprazole 20 mg capsule,delayed 20 mg PO QAM 04/28/21 12/16/21 05/26/21 05:00 release pravastatin 40 mg tablet 40 mg PO HS 04/28/21 12/16/21 05/25/21 21:30 tamsulosin 0.4 mg capsule 0.4 mg PO HS 04/28/21 12/16/21 05/25/21 21:30 zinc sulfate 220 mg capsule 220 mg PO BID 04/28/21 12/16/21 05/25/21 09:30 Wheeled Walker #1 ea 05/27/21 06/24/21 Unknown Wheeled Walker #1 ea 05/27/21 06/24/21 Unknown amoxicillin 500 mg tablet 2,000 mg PO ONCE #4 tab 10/15/21 12/16/21 Unknown Past Medical History Medical History BPH (benign prostatic hyperplasia) CKD (chronic kidney disease) stage 3, GFR 30-59 ml/min Per record GERD (gastroesophageal reflux disease) Well controlled and stable History of COVID-07/2020 was hospitalized at [facility] for 9 days. Required oxygen- no longer requires. Has been seeing [place] [facility] due to Covid infection and residual dyspnea- currently pt states Covid symptoms have resolved Hyperlipidemia Hypothyroidism Osteoarthritis Prediabetes Per record Pulmonary hypertension Per pulm records- on diuretic and low Na diet (normal right sided heart pressures per 03/2020 cardiac cath) Sleep apnea cpap Past Family History Family History Other No family history of adverse response to anesthesia Past Surgical History Surgical History History of bronchoscopy History of carpal tunnel surgery of right wrist History of right knee joint replacement 05/26/21 [facility] History of tooth extraction Hx of appendectomy Hx of cardiac cath 03/2020- no significant CAD Hx of tonsillectomy Social History Smoking Status: Never smoker Do You Dip or Chew Tobacco: No Hx Alcohol Use: No Hx Substance Use: No substance use type: does not use Testing Electrocardiogram Date: 09/16/21 Findings: + SB @ (56bpm) Otherwise normal EKG Chest X-Ray Date: 09/16/21 Findings: + NAD 1.4 cm irregular density within the left midlung. This is equivocal for a pulmonary nodule and a follow-up chest CT is recommended. Stress Test Date: 10/13/19 Type: exercise (Echo) Resting EF: 50-54% Resting LV Function: normal Resting RWMA: + none Valvular Disease: no significant valvular disease Probable negative exercise stress echo for ischemia at MPHR 97%. Borderline positive exercise stress EKG for ischemia at MPHR 97%. 1.[address] depression in the inferior leads at peak stress. EKG normalizes 1 minute into recovery. Poor functional status achieving 3 minutes on standard Velasquez protocol. Left atrium mildly enlarged. Right atrium moderately enlarged. Grade 1 diastolic dysfunction. Cardiac Catheterization Date: 04/02/20 LM = no evidence of disease LAD = 30% lesion in mid LAD Circumflex = no evidence of disease. RCA = minimal luminal irregularities. Conclusions: Coronary angiography with mild nonobstructive CAD. Essentially normal left-sided and right-sided pressures.Patient's dyspnea is likely noncardiac in nature. Recommendations: Recommend medical management. Pulmonary Function Test Date: 05/13/21 Suggestive of a restrictive ventilatory impairment (per 05/15/2021 pulmonary note) Other Testing Holter monitor 07/10/2020= good quality. Dominant rhythm NSR with average heart rate 70 bpm. Rare PACs. Occasional PVCs. No symptoms reported.
--- NOTE | 2021-12-18 09:01 | History & Physical Report ---
Date of Service December 18, 2021 Assessment & Plan (1) Osteoarthritis of left knee: We will proceed with a left total knee arthroplasty. Postoperatively he will be started on aspirin for DVT prophylaxis and kept overnight in the hospital for postoperative medical management. He plans to use [email or web address] upon discharge. History of Present Illness Chief Complaint: Osteoarthritis of the left knee. Primary Care Provider: Vito Angel Ontiveros is a pleasant 81-year-old male who is been doing with chronic increasing left knee pain. X-rays and clinical examination have been diagnostic for advanced arthritis of the left knee. After failed conservative treatment, he elected proceed with a left total knee arthroplasty. He does have a history of a right knee replacement done in May 2021 and is done very well with that. Allergies Allergy/AdvReac Type Severity Reaction Status Date / Time No Known Allergies Allergy Verified 12/16/21 14:04 Home Medications Medication Instructions Recorded Confirmed Type ondansetron HCl 4 mg tablet 4 mg PO Q6H PRN #30 tab 04/14/21 12/16/21 Rx cholecalciferol (vitamin D3) 25 25 mcg PO QAM 04/28/21 12/16/21 History mcg (1,000 unit) tablet (Vitamin D3) cyanocobalamin (vitamin B-12) 1,000 mcg PO QAM 04/28/21 12/16/21 History 1,000 mcg tablet (Vitamin B-12) finasteride 5 mg tablet 5 mg PO QAM 04/28/21 12/16/21 History furosemide 20 mg tablet (Lasix) 20 mg PO QAM 04/28/21 12/16/21 History glucosamine-chondroitin 250 mg-200 1 tab PO QAM 04/28/21 12/16/21 History mg tablet (Osteo Bi-Flex) levothyroxine 75 mcg capsule 75 mcg PO QAM 04/28/21 12/16/21 History omeprazole 20 mg capsule,delayed 20 mg PO QAM 04/28/21 12/16/21 History release pravastatin 40 mg tablet 40 mg PO HS 04/28/21 12/16/21 History tamsulosin 0.4 mg capsule 0.4 mg PO HS 04/28/21 12/16/21 History zinc sulfate 220 mg capsule 220 mg PO BID 04/28/21 12/16/21 History Wheeled Walker #1 ea 05/27/21 06/24/21 Rx Wheeled Walker #1 ea 05/27/21 06/24/21 Rx amoxicillin 500 mg tablet 2,000 mg PO ONCE #4 tab 10/15/21 12/16/21 Rx Past Med/Surg History Medical History BPH (benign prostatic hyperplasia) CKD (chronic kidney disease) stage 3, GFR 30-59 ml/min Per record GERD (gastroesophageal reflux disease) Well controlled and stable History of COVID-07/2020 was hospitalized at [facility] for 9 days. Required oxygen- no longer requires. Has been seeing [place] [facility] due to Covid infection and residual dyspnea- currently pt states Covid symptoms have resolved Hyperlipidemia Hypothyroidism Osteoarthritis Prediabetes Per record Pulmonary hypertension Per pulm records- on diuretic and low Na diet (normal right sided heart pressures per 03/2020 cardiac cath) Sleep apnea cpap Surgical History History of bronchoscopy History of carpal tunnel surgery of right wrist History of right knee joint replacement 05/26/21 [facility] History of tooth extraction Hx of appendectomy Hx of cardiac cath 03/2020- no significant CAD Hx of tonsillectomy Family History Other No family history of adverse response to anesthesia Social History Smoking Status: Never smoker Second Hand Exposure: No; Hx Alcohol Use: No Hx Substance Use: No Preferred Language: Turkish Communication Ability: Effective Preschool Adviser Required: No Beliefs That Will Affect Care: None marital status: Current Living Situation: Spouse Feels Safe at Home: Yes Assistive Devices: CPAP, Glasses and Hearing Aid - Bilateral Review of Systems All systems reviewed & are unremarkable except as noted in HPI & below. Physical Exam On physical examination of the left knee, he has a slight varus deformity. He has good motion of 0 to 120 degrees. He has known stability. He has tenderness palpation over the distal medial femoral condyle. Constitutional WD/WN, vitals as above Eyes PERRL, conjunctivae normal, anicteric sclerae ENMT external ear and nose normal, oropharynx normal Neck trachea midline, no thyromegaly Respiratory normal respiratory effort Cardiovascular RRR, no murmur, no edema Gastrointestinal (Abdomen) normal bowel sounds, soft, nontender, no hepatosplenomegaly Psychiatric A+Ox3, euthymic affect Results & Data Results & Data Laboratory Results . Diagnostic Findings X-rays of the left knee show advanced osteoarthritis with joint space narrowing, osteophyte formation, and [id number] articulation. PG Care Time/CCT Total # of Minutes Spent Total Time Spent with Patient: Total time spent is greater than 50% in coordination of care (as documented) at patient's floor/unit and/or counseling patient: Coding Level of Care Code None Diagnoses Osteoarthritis of left knee M17.12
[~2021-12-19 10:24] MED LIST changes: +BUPIVACAINE 0.25% 30 ML VIAL ONE; +BUPIVACAINE 0.5 % 5 MG/1 ML PF 10ML VIAL ONE; +DEXAMETHASONE SOD INJ 4 MG/ML VIAL ONE; +EPINEPHrine INJ 1 MG/ML AMP ONE; +Ketorolac (*for OR use only*) 30 MG, dexAMETHasone 4 MG, KETAMINE HCL (**OR use only) 1... INFIL SCH; -ROPIVACAINE 0.5% HCL/PF 150 MG, BUPIVACAINE 0.75% MPF 20 ML, EPINEPHrine 30MG/30ML (OR ... INSTIL SCH
[2021-12-19] MEDS ORDERED: fentaNYL citrate 100 MCG/2 ML VIAL ONE (10:43)
[2021-12-19] MEDS ORDERED: MIDAZOLAM HCL 1 MG/ML 2ML VIAL ONE ×2 (10:43)
[2021-12-19 11:20] LABS: Basophils # (auto) 0.02 K/uL (0-0.2); Basophils % (auto) 0.4 %; Eosinophils # (auto) 0.08 K/uL (0-0.5); Eosinophils % (auto) 1.4 %; Hematocrit (blood only) 46.5 % (42-52); Hemoglobin 15.4 g/dL (14.0-18.0); Immature Granulocytes # (auto) 0.01 K/uL (0.00-0.02); Immature Granulocytes % (auto) 0.2 %; Lymphocytes # (auto) 2.15 K/uL (1.2-3.4); Lymphocytes % (auto) 38.7 %; Mean Corpuscular Hemoglobin 30.6 pg (25-34); Mean Corpuscular Volume 92.3 fL (80-100); Mean Platelet Volume 10.2 fL (7.4-10.4); Monocytes # (auto) 0.35 K/uL (0.11-0.59); Monocytes % (auto) 6.3 %; Neutrophils # (auto) 2.94 K/uL (1.4-6.5); Platelet Count 184 K/uL (130-400); RDW Coefficient of Variation 14.8 % (11.5-14.5); RDW Standard Deviation 50.3 fL (36.4-46.3); Red Blood Count 5.04 M/uL (4.7-6.1); White Blood Count 5.55 K/uL (4.8-10.8)
[2021-12-19 11:21] LABS: BUN Creatinine Ratio 26.4 (10-20); Calcium 9.5 mg/dl (8.5-10.1); Creatinine Clr Calc Pharmacy 61.5 ml/min; Est GFR (African American) 73.6 ml/min; Est GFR (Non-African American) 63.5 ml/min; Potassium 3.9 mmol/L (3.5-5.1)
[2021-12-19 11:25] LABS: Partial Thromboplastin Time 27.8 Seconds (21.0-31.0); Prothrombin Time 10.6 Seconds (9.0-12.0)
[2021-12-19 11:26] LABS: Mean Corpuscular Hgb Conc 33.1 g/dL (32-36)
--- NOTE | 2021-12-19 11:41 | History & Physical Bridge Note ---
Date of Service December 19, 2021 History & Physical Bridge Note I have examined the patient, reviewed the History & Physical and in the interval since the performance of the History & Physical I have noted the following changes of clinical significance: no changes noted
[2021-12-19] MEDS ORDERED: ORTHO JOINT ANESTHETIC ONE (12:06)
[2021-12-19] MEDS ORDERED: PROPOFOL IV EMULSION 10 MG/ML 20 ML VIAL IV ONE ×2 (12:46→13:01)
[2021-12-19] MEDS ORDERED: ePHEDrine sulfate 50 MG/ML AMP IV PRN (13:19)
[2021-12-19] MEDS ORDERED: fentaNYL citrate 100 MCG/2 ML VIAL IV PRN (13:19)
[2021-12-19] MEDS ORDERED: ATROPINE SULFATE 0.1 MG/ML 10ML SYR IV PRN (13:19)
[2021-12-19] MEDS ORDERED: ONDANSETRON INJ 2 MG/ML 2 ML VIAL IV PRN ×2 (13:19→16:46)
--- NOTE | 2021-12-19 13:58 | Operative Report ---
PG Post Operative Report Pre & Post Diagnosis Operation Date: 12/19/21 12:50 Pre-Op Diagnosis: Degenerative joint disease left knee. Post-Op Diagnosis: Degenerative joint disease left knee. I identified the patient and participated in the time-out.: Yes Procedure Operation Date: 12/19/21 12:50 Actual Procedures p Left total knee arthroplasty(Left) - Aric Parish DO Surgeon Aric Parish DO Smutter Aric Núñez PAC Estimated Blood Loss 10 Findings Consistent with Post-Op Diagnosis Specimens Left femoral and tibial bone Complications none Disposition Disposition: Recovery Room Indications Weston is a pleasant 81-year-old male who is been dealing with chronic increasing left knee pain. X-rays and clinical examination are diagnostic for advanced arthritis of the left knee. After failing conservative treatment, he elected proceed with a left total knee arthroplasty. Description of Procedure Implants used: I used a Angela Persona total knee arthroplasty system with a size 11 standard femur, F tibia, 34 oval patella, and a size 11 medial congruent polyethylene bearing. All components were cemented in place with Biomet cement. Weston arrived [facility] for the above procedure. He was seen in the preoperative holding area and the operative extremity was identified and signed. He was given a preoperative antibiotic, TXA, a spinal anesthetic and an adductor nerve block. He was taken back to the operating room and laid on the table in supine position. He was given basic sedation. The operative knee was then prepped and draped in sterile fashion. A timeout was done, and the patient and the operative extremity was properly identified. A midline incision was made directly over the patella. Dissection was taken down to the extensor mechanism. A subvastus arthrotomy was used. The medial retinaculum was released and the fat pad was mostly excised. The knee was flexed and the ACL, PCL, and meniscus were removed. A drill was sent down the center of the femoral canal followed by an intramedullary eric. Off that eric a distal femoral cutting block was placed. 9 mm was resected off the distal femur at 5 of valgus. A posterior referencing AP sizing guide was then placed on the distal femur. The femur measured to be a size 11. 2 drill holes were placed in 3 of external rotation. A 4-in-1 cutting block was then impacted into place. Anterior, posterior, and chamfer cuts were then made. The proximal tibia was then exposed. An external tibial alignment guide was placed. A tibial cut guide was then anchored in place and the proximal tibia was then resected. The posterior aspect of the knee was then opened up and any additional meniscus fragments and osteophytes were removed. The tibia measured to be a size F. The tibial plate was then placed in the appropriate rotation and the tibia was drilled and punched. Trial components were then placed. I used a size 11 medial congruent polyethylene insert. The knee was brought through a full range of motion and felt to be stable. The peg holes for the femoral component were then drilled. The patella was then everted and 9 mm was resected off the posterior aspect of the patella. The patella measured to be a size 34 oval. 3 peg holes were then drilled. A trial patella was placed. The knee was once again brought through a full range of motion and felt to be stable. Trial components were then removed. The surrounding soft tissues were injected with 100 cc of an orthopedic pain control cocktail. All components were then cemented into place with Biomet cement. The final polyethylene insert was then snapped into place. Once cement was dry the tourniquet was deflated. Hemostasis was obtained. A dilute betadyne lavage was then done for 3 minutes. The joint was then irrigated with normal saline solution. The subvastus arthrotomy was then closed with #1 Vicryl suture. The skin was closed with 2-0 Vicryl, 3-0V lock suture, and amish. A soft compressive dressing was placed. He was then transferred to a hospital bed and taken to the postanesthesia care unit in stable condition. He tolerated the procedure well. Aric Núñez PA-C, was present for the entire procedure. He was critical for patient positioning, prepping, draping, retraction exposure, wound closure and application of sterile dressing. I attest to the content of the Intraoperative Record and any orders documented therein. Any exceptions are noted below.
--- NOTE | 2021-12-19 14:50 | XRay Report ---
XR knee LT 1 or 2V routine HISTORY: 81 years-old Male Surgical Post Op left knee total joint arthroplasty COMPARISON: Knee radiographs 06/24/2021 TECHNIQUE: 2 views of the left knee FINDINGS: Left knee total joint arthroplasty with patellar resurfacing. Anterior midline skin amish are noted along with expected postoperative soft tissue swelling with deep tissue air. Arterial calcifications . No acute fracture or unexpected opaque foreign body. IMPRESSION: Left knee total joint arthroplasty with expected postoperative changes. ACT 112: Negative or not required by law. The above report was generated using voice recognition software. It may contain grammatical, syntax o r spelling errors. Electronically signed by: Kurtis Oliveros M.D. 12/19/2021 2:48 PM
--- NOTE | 2021-12-19 16:09 | Anesthesiology Progress Note ---
Date of Service December 19, 2021 Anesthesia Post Procedure Vital Signs Vital Signs: Temp Pulse Pulse Resp BP Pulse Ox 12/19/21 15:55 70 18 110/63 96 12/19/21 15:45 36.5 C 56 L 18 106/80 97 12/19/21 15:35 52 L 17 113/66 96 12/19/21 15:25 71 18 126/81 96 12/19/21 15:15 51 L 12 108/63 98 12/19/21 15:05 53 L 18 110/73 97 12/19/21 14:55 67 17 100/72 95 12/19/21 14:45 54 L 20 102/63 96 12/19/21 14:35 65 16 110/68 97 12/19/21 14:25 54 L 15 107/65 98 12/19/21 14:18 36 C L 70 20 102/64 95 12/19/21 11:01 36.7 C 63 20 140/77 96 Transfer of Care Handoff Completed per policy Notes Mental Status: alert / awake / arousable and participated in evaluation Patient Amnestic to Procedure: Yes Nausea / Vomiting: adequately controlled Pain: adequately controlled Airway Patency, RR, SpO2: stable & adequate BP & HR: stable & adequate Hydration State: stable & adequate Anesthetic Complications: no major complications apparent
[2021-12-19] MEDS ORDERED: MAGNESIUM HYDROXIDE SUSP 30 ML UDC PO PRN (16:46)
[2021-12-19] MEDS ORDERED: NALOXONE HCL 0.4 MG/1 ML VIAL/CARP IV PRN (16:46)
[2021-12-19] MEDS ORDERED: METOCLOPRAMIDE HCL INJ 5 MG/ML 2 ML VIAL IV PRN (16:46)
[2021-12-19] MEDS ORDERED: HYDROmorphone INJ 0.5 MG/0.5 ML SYR IV PRN (16:46)
[2021-12-19] MEDS ORDERED: oxyCODONE HCL IR 5 MG TAB (IMMEDIATE RELEASE) PO PRN (16:46)
[2021-12-19] MEDS ORDERED: bisacodyL 10 MG SUPP PR PRN (16:46)
[2021-12-19] MEDS: SODIUM CHLORIDE 0.9% 1000ML 1,000 ML IV SCH (17:07)
[2021-12-19] MEDS ORDERED: ONDANSETRON 4 MG OD TAB PO PRN (17:43)
[2021-12-19] MEDS: KETOROLAC TROMETHAMINE 15 MG/ML VIAL IV SCH (17:47)
[2021-12-19] MEDS ORDERED: SENNA 8.6 MG TAB PO SCH (21:00)
[2021-12-19] MEDS ORDERED: PRAVASTATIN SOD 40 MG TAB PO SCH (21:00)
[2021-12-19] MEDS ORDERED: TAMSULOSIN HCL 0.4 MG CAP PO SCH (21:00)
[2021-12-19] MEDS: ceFAZolin 2000MG 2,000 MG/15 ML SYR IV SCH (21:16)
[2021-12-19] MEDS: DOCUSATE SODIUM 100 MG CAP PO SCH (21:17)
[2021-12-19] MEDS: ASPIRIN 81 MG ECTAB PO SCH (21:17)
[2021-12-19] MEDS: ACETAMINOPHEN 500 MG TAB PO SCH (21:52)
[2021-12-20] MEDS: KETOROLAC TROMETHAMINE 15 MG/ML VIAL IV SCH ×2 (00:03→06:23)
[2021-12-20] MEDS: SODIUM CHLORIDE 0.9% 1000ML 1,000 ML IV SCH (02:56)
[2021-12-20] MEDS: ceFAZolin 2000MG 2,000 MG/15 ML SYR IV SCH (04:41)
[2021-12-20] MEDS: ACETAMINOPHEN 500 MG TAB PO SCH (06:23)
[2021-12-20] MEDS ORDERED: LEVOTHYROXINE SODIUM 75 MCG TABLET PO SCH (06:30)
--- NOTE | 2021-12-20 07:10 | Orthopedic Progress Note ---
Date of Service December 20, 2021 Assessment & Plan (1) Status post left knee replacement: Overall is doing very well. Is not having much pain in the left knee. He will be seen by physical therapy today for ambulation and range of motion exercises. He is on aspirin for DVT prophylaxis. He can be discharged home later today. He will follow-up with orthopedics in 2 weeks. Bacilio Burciaga was seen and examined at bedside this morning. Overall is doing very well. Is not having much pain in the left knee. He has been up and ambulating to the bathroom. He has no complaints. Review of Systems All systems reviewed & are unremarkable except as noted in HPI & below. Physical Exam On physical examination of the left knee, is dressing is clean and dry. The leg is out full extension. He has active dorsiflexion plantarflexion of the left ankle. Results & Data Results & Data Laboratory Results . Diagnostic Findings Postoperative x-rays of the left knee show the prosthesis to be in anatomic alignment without any evidence of fracture, desiccation, or loosening. PG Care Time/CCT Total # of Minutes Spent Total Time Spent with Patient: Total time spent is greater than 50% in coordination of care (as documented) at patient's floor/unit and/or counseling patient: Coding Level of Care Code 59757 Post Operative Follow-Up Diagnoses Status post left knee replacement Z96.652
--- NOTE | 2021-12-20 07:11 | Discharge Summary ---
Date of Service December 20, 2021 Admission HPI (Per Admitting) Weston is a pleasant 81-year-old male who is been doing with chronic increasing left knee pain. X-rays and clinical examination have been diagnostic for advanced arthritis of the left knee. After failed conservative treatment, he elected proceed with a left total knee arthroplasty. He does have a history of a right knee replacement done in May 2021 and is done very well with that. Admission Exam (Per Admitting) On physical examination of the left knee, he has a slight varus deformity. He has good motion of 0 to 120 degrees. He has known stability. He has tenderness palpation over the distal medial femoral condyle. Principal Diagnosis Same as "Discharge Diagnosis" noted below under Discharge Instructions. Discharge Exam On physical examination of the left knee, is dressing is clean and dry. The leg is out full extension. He has active dorsiflexion plantarflexion of the left ankle. Discharge Data Procedures Performed Operation Date: 12/19/21 12:50 Actual Procedures p Left total knee arthroplasty(Left) - Aric Parish DO Ordered Studies 12/19/21 05:00 US - OR guided needle placemen Routine Hospital Course (1) Status post left knee replacement: On December 19, 2021 Weston arrived at [facility] and underwent a left knee replacement without complication. He had a spinal anesthetic. Postoperatively he was started on aspirin for DVT prophylaxis and transferred to the general orthopedic floors. His hospital course was uneventful. On postop day #1 his vital signs were stable and his pain was well controlled. He was able to participate well with physical therapy doing ambulation and range of motion exercises. He was then discharged home. He will follow-up with orthopedics in 2 weeks. PG Care Time/CCT Total # of Minutes Spent Total Time Spent with Patient: Total time spent is greater than 50% in coordination of care (as documented) at patient's floor/unit and/or counseling patient: Discharge Plan Discharge Items Patient Disposition: Home - Home Health Services Reason For Visit: Degenerative Joint Disease Left knee Discharge Diagnosis: Left knee replacement Activity: Per Instructions section Non-emergency contact: Surgeon Call non-emergency contact if: your wound has increased redness and your wound has increased drainage Follow-up/Referrals: Vito Jean [Primary Care Provider] - Diet: Regular Addtl Attending Provider Instructions: Activity and Therapy Recommendations: * If you are using [facility] then therapy will be provided at your home until they feel you have accomplished all of your goals. * If you are using [facility] then Physical Therapy will be provided until they feel you are ready to start Outpatient Physical Therapy. * If you are not using home therapy then Outpatient Physical Therapy should start about 3-5 days from your day of surgery. Therapy will last about 6-10 weeks * It is important not to put a pillow under your knee when you are relaxing or sleeping. It is just as important to make sure you are getting your knee perfectly straight as it is to regain your knee bend. * You were shown a series of exercises in the hospital. Do these exercises three times each day including the exercises you were shown in physical therapy. * Get up and walk several times each day. For the first four weeks, try not to stand or walk for more than one hour at a time. If you do stand or walk for more than one hour, you will not hurt anything, but your leg will likely swell. * As you feel comfortable, you may change from the walker or crutches to a cane and then to independent walking. Medications: * Narcotic You will likely be sent home from the hospital with a prescription for the narcotic pain medication that worked best throughout your stay. * Aspirin Most patients will be required to take Aspirin 81mg twice a day for 6 weeks after surgery. This is obtained [id number] and a prescription is not necessary. * Other medications may be prescribed for specific circumstances. If you have any questions, please call the office at . * Resume previous home medications unless otherwise instructed TEDs/Elastic Stockings: The white elastic stockings help limit swelling and prevent blood clots from forming in your legs.~ The more you wear them, the more they work. Wear them for six weeks. Dressing Care: The dressing can be changed after physical therapy on postop day #1. Daily dry dressing changes for a few days, especially if the incision is still draining some. If the incision is not draining then you may leave the amish open to air. If there is a little bit of drainage or if the amish are getting stuck on your clothing then cover the incision with a dry dressing. The amish will be removed at your 2 week follow-up appointment. Showering: You may shower 5 days from the day of surgery as long as the incision is no longer draining. You may shower with the amish exposed. Let soapy water run over the amish and pat them dry. Do not scrub or soak the incision. Things To Watch For: * Drainage from the incision site that occurs more than one week after your surgery. * Increased redness at the incision site. * Fever above 102 degrees Fahrenheit. * Unusual chest pain or shortness of breath. * Call [facility] at with any of the above problems Follow-Up Visit: Follow-up with Dr. Parish's PA (Aric Nñúez) 2-3 weeks after your day of surgery. He will remove your amish and answer any questions. If you have any additional questions or concerns, Dr Parish is usually in the office at the same time and will be available An appointment was probably scheduled when you signed-up for surgery in the office. If you have any questions call Office Instructions: More detailed instructions as well as Frequently Asked Questions were provided in a folder by our office when you signed-up for surgery. Please review these instructions when you get home. If you have any further questions or concerns, please feel free to call the office at [phone] Pending Studies at Discharge: No Stand-Alone Forms: My [facility] Medications and DC Order Prescriptions: New oxycodone-acetaminophen 5-325 mg tablet 1 tab PO Q6H PRN (Reason: pain) Qty: 30 RF: 0 aspirin [Adult Aspirin Regimen] 81 mg tablet,delayed release (DR/EC) 81 mg PO BID Qty: 84 RF: 0 Continued ondansetron HCl 4 mg tablet 4 mg PO Q6H PRN (Reason: nausea and vomiting) Qty: 30 RF: 0 (DME) Wheeled Walker Misc See Rx Instructions .MEDSUPPLY Qty: 1 RF: 0 (DME) [facility] See Rx Instructions .MEDSUPPLY Qty: 1 RF: 0 amoxicillin 500 mg tablet 2,000 mg PO ONCE Qty: 4 RF: 3 pravastatin 40 mg Tablet 40 mg PO HS RF: 0 cyanocobalamin (vitamin B-12) [Vitamin B-12] 1,000 mcg Tablet 1,000 mcg PO QAM RF: 0 tamsulosin [Flomax] 0.4 mg Capsule 0.4 mg PO HS RF: 0 omeprazole 20 mg Capsule,Delayed Release(Dr/Ec) 20 mg PO QAM RF: 0 furosemide [Lasix] 20 mg Tablet 20 mg PO QAM RF: 0 zinc sulfate 220 mg Capsule 220 mg PO BID RF: 0 finasteride [Proscar] 5 mg Tablet 5 mg PO QAM RF: 0 glucosamine-chondroitin [Osteo Bi-Flex] 250-200 mg Tablet 1 tab PO QAM RF: 0 cholecalciferol (vitamin D3) [Vitamin D3] 25 mcg (1,000 unit) Tablet 25 mcg PO QAM RF: 0 levothyroxine 75 mcg Capsule 75 mcg PO QAM RF: 0 Discharge Orders: Discharge Order (Routine); Ordered 12/20/21 Ordered By: Aric Parish Admission Data Admit Date/Time: 12/19/21 14:22 Attending Provider: Aric Parish Admit Provider: Aric Parsih Primary Care Provider: Vito Jean
[2021-12-20] MEDS ORDERED: dexAMETHasone 4 MG TAB PO SCH (08:00)
[2021-12-20] MEDS: DOCUSATE SODIUM 100 MG CAP PO SCH (08:05)
[2021-12-20] MEDS: ASPIRIN 81 MG ECTAB PO SCH (08:06)
[2021-12-20] MEDS ORDERED: FUROSEMIDE 20 MG TAB PO SCH (09:00)
[2021-12-20] MEDS ORDERED: PANTOprazole 40 MG TAB PO SCH (09:00)
[2021-12-20] MEDS ORDERED: MULTIVITAMIN TAB PO SCH (09:00)
[2021-12-20] MEDS ORDERED: FINASTERIDE 5 MG TAB PO SCH (09:00)
== END 2021-12-20 12:00 | disposition home health service (06) ==
LOC: ASU 10:24 → 3E 10:24